=== PATIENT | male | born 1970 ===

== ENCOUNTER 2023-06-07 07:02 | Day surgery (SDC) | payer OTHER ==
[~2023-06-07] VITALS: Ht 177.8 cm; Wt 97.5 kg
[~2023-06-07 07:02] MED LIST: CRESTOR10 MG PO; DIOVAN320 MG PO; MAXIMUM ENERGY1 EACH PO; PRESERVISION A1 EAC1 PO; TRILIPIX135 MG PO
== END 2023-06-07 14:20 | disposition home or self-care (01) ==
LOC: CIR.AMB 07:02
PROVIDERS: ATTEND Specialist
DX: D17.1 Benign lipomatous neoplasm of skin and subcutaneous tissue of trunk (principal); I10 Essential (primary) hypertension; Z20.822 Contact with and (suspected) exposure to COVID-19; E78.5 Hyperlipidemia, unspecified; E03.9 Hypothyroidism, unspecified